=== PATIENT | male | born 2000 | race Caucasian/White ===

== ENCOUNTER 2021-04-07 14:55 | Emergency (ER) | payer SELFPAY ==
[~2021-04-07] VITALS: Ht 177.8 cm; Wt 94.8 kg
[2021-04-07 14:55] VITALS: BP 127/53
[2021-04-07] MEDS ORDERED: ACET32TAB PO (15:01)
== END 2021-04-07 20:18 | disposition left against medical advice (07) ==
LOC: M ED 14:55
DX: Z53.29 Procedure and treatment not carried out because of patient's decision for other reasons (principal)